=== PATIENT | female | born 1935 | race Caucasian/White ===

== ENCOUNTER 2016-04-07 16:07 | Inpatient (IN) | payer MEDICARE ==
[~2016-04-07] VITALS: Ht 157.5 cm; Wt 60.9 kg
[2016-04-07 16:09] VITALS: BP 194/86; PULSE 78; RESP 14; TEMP 98; O2SAT 97
--- NOTE | 2016-04-07 18:41 | PD ---
HPI Chief Complaint: Laceration/Skin Injury Time Seen by Provider: 18:38 Travel History International Travel<30 days: No Contact w/Intl Traveler<30days: No Traveled to known affect area: No History of Present Illness HPI 81-year-old female presents to the emergency department for evaluation after a trip and fall that occurred perspired to arrival. Patient states she tripped and fell hitting her head against the concrete. Patient reports laceration to the right forehead with localized tenderness. Patient also reports pain to her left hand and right forearm. She reports chronic hip pain, but states she does have hip pain today. Patient denies taking any anticoagulants other than a baby aspirin daily. She states she was on Coumadin previously for stroke, but is no longer taking it. Patient denies any neck pain or back pain. No chest pain or abdominal pain. No vomiting. She states she was not ambulatory after the fall. Patient states her tetanus immunization is up-to-date. PFSH Past Medical History Cerebrovascular Accident: Yes Social History Alcohol Use: No Tobacco Use: No Substance Use: No Allergies-Medications (Allergen,Severity, Reaction): Coded Allergies: No Known Allergies (Unverified , 04/07/16) Reported Meds & Prescriptions Reported Meds & Active Scripts Active Reported Aspirin 81 (Aspirin) 81 Mg Tabdr 81 Mg PO DAILY Hydrochlorothiazide 25 Mg Tab 25 Mg PO DAILY Lisinopril 10 Mg Tab 10 Mg PO DAILY Review of Systems Except as stated in HPI: all other systems reviewed are Neg Physical Exam Narrative GENERAL: Well-developed well-nourished elderly female patient, afebrile. SKIN: Warm and dry. Patient has an approximately 4 cm laceration to the right forehead. HEAD: Normocephalic. EYES: No scleral icterus. No injection or drainage. NECK: Supple, trachea midline. No JVD or lymphadenopathy. CARDIOVASCULAR: Regular rate and rhythm without murmurs, gallops, or rubs. RESPIRATORY: Breath sounds equal bilaterally. No accessory muscle use. Lungs sounds are clear to auscultation. GASTROINTESTINAL: Abdomen soft, non-tender, nondistended. MUSCULOSKELETAL: No cyanosis, or edema. Patient has tenderness over right elbow and right wrist. She also has ecchymosis to the left hand with small abrasion. Patient has bilateral hip pain to palpation. BACK: Nontender without obvious deformity. No CVA tenderness. Data Data Last Documented VS Vital Signs Date Time Temp Pulse Resp B/P Pulse Ox O2 Delivery O2 Flow Rate FiO2 04/07/16 16:09 98.0 78 14 194/[address] Brain W/O Iv Contrast(Rout) (04/07/16 ) Ct Cerv Spine W/O Contrast (04/07/16 ) Ct Facial Bones W/O Iv Cont (04/07/16 ) Pelvis, Ap Only (Routine) (04/07/16 ) Forearm (2vws) (04/07/16 ) Hand, Complete ([id number]) (04/07/16 ) I-Stat Profile (04/07/16 19:52) I-Stat Creatinine (04/07/16 19:52) Complete Blood Count With Diff (04/07/16 19:52) Prothrombin Time / Inr (Pt) (04/07/16 19:52) Act Partial Throm Time (Ptt) (04/07/16 19:52) Type And Screen (04/07/16 19:52) Fibrinogen (04/07/16 19:52) Urinalysis - C+S If Indicated (04/07/16 19:52) Iv Access Insert/Monitor (04/07/16 19:52) Ecg Monitoring (04/07/16 19:52) Oximetry (04/07/16 19:52) Oxygen Administration (04/07/16 19:52) Wound Care (04/07/16 19:52) Cefazolin 2 Gm Premix (Ancef 2 Gm Premix (04/07/16 20:00) Etts-Vlo-Rjvmyp (Booster) Inj (Boostrix (04/07/16 20:00) Sodium Chloride 0.9% Flush (Ns Flush) (04/07/16 20:00) Sodium Chlor 0.9% 1000 Ml Inj (Ns 1000 M (04/07/16 20:00) Elbow, Complete (4 Vws) (04/07/16 19:54) Ice/Cold Pack (04/07/16 19:54) Splint Or Brace Apply/Monitor (04/07/16 19:54) Labs Laboratory Tests Test 04/07/16 19:55 White Blood Count 7.3 TH/MM3 Red Blood Count 4.58 MIL/MM3 Hemoglobin 14.0 GM/DL Bedside Hemoglobin 13.9 G/DL Hematocrit 41.1 % Bedside Hematocrit 41.0 % Mean Corpuscular Volume 89.8 FL Mean Corpuscular Hemoglobin 30.7 PG Mean Corpuscular Hemoglobin 34.2 % Concent Red Cell Distribution Width 13.6 % Platelet Count 202 TH/MM3 Mean Platelet Volume 7.6 FL Neutrophils (%) (Auto) 71.5 % Lymphocytes (%) (Auto) 19.2 % Monocytes (%) (Auto) 8.0 % Eosinophils (%) (Auto) 1.0 % Basophils (%) (Auto) 0.3 % Neutrophils # (Auto) 5.2 TH/MM3 Lymphocytes # (Auto) 1.4 TH/MM3 Monocytes # (Auto) 0.6 TH/MM3 Eosinophils # (Auto) 0.1 TH/MM3 Basophils # (Auto) 0.0 TH/MM3 CBC Comment DIFF FINAL Differential Comment Prothrombin Time 10.9 SEC Prothromb Time International 1.0 RATIO Ratio Activated Partial 26.9 SEC Thromboplast Time Fibrinogen 314 mg/dL Bedside Sodium 141 MMOL/L Bedside Potassium 3.6 MMOL/L Bedside Chloride 100 MMOL/L Bedside Blood Urea Nitrogen 21 MG/DL Bedside Creatinine 0.6 MG/DL Bedside Glucose 89 MG/DL [facility] Medical Decision Making Medical Screen Exam Complete: Yes Emergency Medical Condition: Yes Medical Record Reviewed: Yes Differential Diagnosis Laceration versus intracranial abnormality versus fracture versus contusion Narrative Course 81-year-old elderly female presents to the emergency department for evaluation after a trip and fall. CT of the brain, cervical spine, facial bones are ordered and pending. X-ray of the right forearm, left hand, pelvis are ordered and pending. Workup is initiated in triage. Once a medical bed becomes available, patient will be transferred and care assumed by that provider. Samantha Angel Apr 07, 2016 18:41
--- NOTE | 2016-04-07 19:26 | RADRPT ---
EXAM DATE/TIME: 04/07/2016 18:51 [facility] COMPARISON: No previous studies available for comparison. INDICATIONS : Bilateral hip pain after fall today. MEDICAL HISTORY : None. SURGICAL HISTORY : None. ENCOUNTER: Initial ACUITY: 1 day PAIN SCORE: 5/10 LOCATION: Bilateral hips. FINDINGS: A single frontal view of the pelvis demonstrates no evidence of fracture. The bony pelvic ring is in tact. Bony mineralization is normal. The soft tissues are intact. There is degenerative change in t he lower lumbar spine. CONCLUSION: No acute disease. Jovon Hernandez MD on April 07, 2016 at 19:24 Board Certified Radiologist. This report was verified electronically.
--- NOTE | 2016-04-07 19:29 | RADRPT ---
EXAM DATE/TIME: 04/07/2016 18:57 [facility] COMPARISON: No previous studies available for comparison. INDICATIONS : Trip and fall today; laceration to forehead. RADIATION DOSE: 62.44 CTDIvol (mGy) MEDICAL HISTORY : Cerebrovascular disease. SURGICAL HISTORY : None. ENCOUNTER: Initial ACUITY: 1 day PAIN SCORE: 5/10 LOCATION: facial TECHNIQUE: Volumetric scanning of the facial bones was performed. Using automated exposure control and adjustme nt of the mA and/or kV according to patient size, radiation dose was kept as low as reasonably achiev able to obtain optimal diagnostic quality images. FINDINGS: ORBITS: The orbital and infraorbital osseous structures are intact. The retroconal structures have a normal configuration. No radiopaque foreign bodies are seen. NASAL BONE: The nasal bone and maxillary spine are intact ZYGOMATIC ARCHES: Symmetric without evidence of fracture. SINUSES: The maxillary, ethmoid and frontal sinuses are intact. No air-fluid levels seen. NASAL CAVITY: The nasal septum is intact and midline. The lacrimal ducts are intact. SOFT TISSUES: There is soft tissue swelling at the right frontal scalp region. There is right periorbital soft tiss ue swelling. No radiopaque foreign bodies seen. INTRACRANIAL: No intracranial air seen. CRIBIFORM PLATE: Grossly intact. CONCLUSION: 1. The bones are intact. 2. Right frontal scalp and periorbital soft tissue swelling. Jovon Hernandez MD on April 07, 2016 at 19:25 Board Certified Radiologist. This report was verified electronically.
--- NOTE | 2016-04-07 19:31 | RADRPT ---
EXAM DATE/TIME: 04/07/2016 18:41 [facility] COMPARISON: No previous studies available for comparison. INDICATIONS : Left hand pain and swelling after fall today. MEDICAL HISTORY : None. SURGICAL HISTORY : None. ENCOUNTER: Initial ACUITY: 1 day PAIN SCORE: 5/10 LOCATION: Left hand. FINDINGS: No fracture is seen. The bones and joints are aligned. There is chronic degenerative ch skyler at the first carpometacarpal joint. The bones appear osteopenic. There does appear to be some s oft-tissue swelling at the medial aspect of the hand. CONCLUSION: 1. Medial soft-tissue swelling. 2. Chronic degenerative change at the first carpometacarpal joint. Jovon Hernandez MD on April 07, 2016 at 19:21 Board Certified Radiologist. This report was verified electronically.
--- NOTE | 2016-04-07 19:33 | RADRPT ---
EXAM DATE/TIME: 04/07/2016 18:44 [facility] COMPARISON: No previous studies available for comparison. INDICATIONS : Right arm pain after fall. Pain near elbow. MEDICAL HISTORY : None. SURGICAL HISTORY : None. ENCOUNTER: Initial ACUITY: 1 day PAIN SCORE: 8/10 LOCATION: Right forearm. FINDINGS: There is a lucency seen at the radial head concerning for a possible fracture. The patient does appe ar to have an elbow effusion. The elbow is normally aligned. There is a spur at the anterior proxim al ulna at the coronoid process. The remaining aspects of the ulna and radius appear intact. The wris t is normally aligned. There is chronic degenerative change at the first carpometacarpal joint. CONCLUSION: Possible nondisplaced fracture at the radial head with a suspected elbow joint effusi on. Jovon Hernandez MD on April 07, 2016 at 19:22 Board Certified Radiologist. This report was verified electronically.
--- NOTE | 2016-04-07 19:41 | RADRPT ---
EXAM DATE/TIME: 04/07/2016 18:57 [facility] COMPARISON: No previous studies available for comparison. INDICATIONS : Trip and fall today; laceration to forehead. RADIATION DOSE: 34.16 CTDIvol (mGy) MEDICAL HISTORY : Cerebrovascular disease. SURGICAL HISTORY : None. ENCOUNTER: Initial ACUITY: 1 day PAIN SCALE: 5/10 LOCATION: Cranial TECHNIQUE: Multiple contiguous axial images were obtained of the head. Using automated exposure control and adjustment of the mA and/or kV according to patient size, radiation dose was kept as low as reasonably achievable to obtain optimal diagnostic quality images. FINDINGS: The ventricles and cortical sulci are widened. There is a focal area of increas ed density seen in the right sylvian fissure region seen in the right lateral extraaxial space. This could be a small 0.8 cm area of focal hemorrhage or calcification. It more closely resembles hemorr sg based on its density. Significant mass effect is not seen. No other potential areas of hemorrha ge are seen. The patient does have an area of low density seen at the inferior right cerebellar louis sphere likely from prior infarction. CONCLUSION: 1. Small 0.8 cm area of increased density at the right lateral frontal extraaxial space adjacent to t he sylvian fissure which could represent a small focal extraaxial hemorrhage without mass effect. 2. Low density seen in the right cerebellar hemisphere which may be from prior infarct. Jovon Hernandez MD on April 07, 2016 at 19:28 Board Certified Radiologist. This report was verified electronically.
--- NOTE | 2016-04-07 19:48 | RADRPT ---
EXAM DATE/TIME: 04/07/2016 18:57 [facility] COMPARISON: No previous studies available for comparison. INDICATIONS : Trip and fall today; laceration to forehead. RADIATION DOSE: 15.69 CTDIvol (mGy) MEDICAL HISTORY : Cerebrovascular disease. SURGICAL HISTORY : None. ENCOUNTER: Initial ACUITY: 1 day PAIN SCALE: 7/10 LOCATION: Neck TECHNIQUE: Volumetric scanning of the cervical spine was performed. Multiplanar reconstructions i n the sagittal, coronal and oblique axial planes were performed. Using automated exposure control a nd adjustment of the mA and/or kV according to patient size, radiation dose was kept as low as reason ably achievable to obtain optimal diagnostic quality images. FINDINGS: The craniovertebral junction is intact. The C1 ring is intact. The C1-C2 articulation is intact. The dens is intact. The cervical vertebral bodies are normal in height. There is mild reversal of the normal C-spine lordosis. There is disc space narrowing at the C3-C4 through C6-C7 lev els. Prevertebral soft tissue swelling is not seen. C2-C3: The disc space is intact. There is no spinal stenosis and the neural foramina are normal. The re is facet hypertrophy being worse on the right. C3-C4: Disc space is narrowed. Significant impression on the thecal sac is not seen. The neural for geoffrey are grossly normal. There is bilateral facet hypertrophy. C4-C5: Disc space is narrowed. There is mild impression on the anterior aspect of the thecal sac fr om mild diffuse disc bulge or focal central disc protrusion. There is posterior osteophytic ridging. There is uncovertebral hypertrophy and bilateral facet hypertrophy. The neural foramina are grossly intact. C5-C6: There is mild diffuse disc bulge. There is moderate osteophytic ridging causing at least a m oderate impression on the anterior aspect of the thecal sac. There is uncovertebral hypertrophy caus ing neural foraminal narrowing bilaterally being worse on the right. C6-C7: Disc space is narrowed. There is mild disc bulge and osteophytic ridging. There is uncovert ebral hypertrophy. There is minimal narrowing of the left neural foramina. The right neural foramin a appears intact. C7-T1: The bony spinal canal is normal in size. No evidence of disc bulge or herniation. The neura l foramina are bilaterally patent. CONCLUSION: Degenerative changes throughout the cervical spine as described above. An acute bony abnormality is not seen. Jovon Hernandez MD on April 07, 2016 at 19:32 Board Certified Radiologist. This report was verified electronically.
[2016-04-07 20:00] VITALS: BP 188/85; PULSE 83; RESP 17; O2SAT 97
[2016-04-07] MEDS ORDERED: SODIUM CHLORIDE 0.9% FLUSH 5 ML FLUSH IVF PRN (20:00)
[2016-04-07] MEDS ORDERED: ceFAZolin 2 GM PREMIX 50 ML IV ONE (20:00)
[2016-04-07] MEDS ORDERED: DIPHTH/TETANUS/ACEL PERTUSSIS (BOOSTER) 0.5 ML VIAL/PFS IM ONE (20:00)
[2016-04-07] MEDS ORDERED: HYDR25TA5 PO (20:07)
[2016-04-07] MEDS ORDERED: LISI10TA3 PO (20:07)
[2016-04-07] MEDS ORDERED: ASPI-110 PO (20:07)
[2016-04-07 20:08] LABS: AUTOMATED NEUTROPHIL # 5.2 TH/MM3 (1.8-7.7); BASOPHIL % 0.3 % (0.0-2.0); EOSINOPHIL # 0.1 TH/MM3 (0-0.4); HEMATOCRIT 41.1 % (35.0-46.0); HEMO FLAGS DIFF FINAL; LYMPH % 19.2 % (9.0-44.0); LYMPHOCYTE # 1.4 TH/MM3 (1.0-4.8); MEAN CELL VOLUME 89.8 FL (80.0-100.0); MEAN CORPUSCULAR HEMOGLOBIN 30.7 PG (27.0-34.0); MEAN CORPUSCULAR HGB CONC 34.2 % (32.0-36.0); NEUT % 71.5 % (16.0-70.0); PLATELET COUNT 202 TH/MM3 (150-450); RED BLOOD COUNT 4.58 MIL/MM3 (4.00-5.30); RED CELL DISTRIBUTION WIDTH 13.6 % (11.6-17.2); WHITE BLOOD COUNT 7.3 TH/MM3 (4.0-11.0)
--- NOTE | 2016-04-07 20:11 | PD ---
Physical Exam Narrative General: The patient is a well-developed well-nourished female in no acute distress, with a pressure bandage in place over the forehead. Head and Neck exam: Head is normocephalic, evidence of trauma with a large stellate laceration approximating 7 cm of laceration over the right side of the forehead with a small amount of oozing noted with pressure bandage removal. The patient is noted to have an area of ecchymosis developing along the lateral aspect of the right eye. The patient has tenderness on palpation over the forehead. The patient has no other facial tenderness on palpation. No step-off or crepitus. No increased facial bone mobility on palpation. Eyes: EOMI, pupils are equal round and reactive to light. Nose: Midline septum with pink mucous membranes Mouth: Dentition unremarkable. Moist mucus membranes. Posterior oropharynx is not erythematous. No tonsillar hypertrophy. Uvula midline. Airway patent. Neck: No palpable lymphadenopathy. No nuchal rigidity. No thyromegaly. No spinous process tenderness to palpation, no step-off or crepitus, no erythema or ecchymosis. Cardiovascular: Regular rate and rhythm without murmurs, gallops, or rubs. Lungs: Clear to auscultation bilaterally. No wheezes, rhonchi, or rales. Abdomen: Soft, without tenderness to palpation in all 4 quadrants of the abdomen. No guarding, rebound, or rigidity. Normal bowel sounds are audible. Extremities: No clubbing, cyanosis, or edema. 2+ pulses in all 4 extremities. The patient on examination of the patient's left hand is noted to have an area of ecchymosis developing along the dorsum of the hand, overlying the third fourth and fifth metacarpal. There is tenderness on palpation at this site, however no step-off or crepitus. She has full range of motion of her hand. On examination of the right hand the patient has an abrasion along the volar surface, base of the hand. There is tenderness at this site, however no crepitus or step-off. The patient additionally has tenderness on palpation along the elbow. There is no crepitus or step-off. The patient has pain with supination and pronation. Back: No spinous process tenderness to palpation. No costovertebral angle tenderness to palpation. Neurologic Exam: Cranial nerves 2-12 were intact on exam. Strength is 5/5 in all 4 extremities. No sensory deficits noted. No dysdiadochokinesis. Good finger to nose and Heel to araujo bilaterally. Skin Exam: No rash noted. Intact skin that is warm and dry. Data Data Last Documented VS Vital Signs Date Time Temp Pulse Resp B/P Pulse Ox O2 Delivery O2 Flow Rate FiO2 04/07/16 20:00 83 17 188/85 97 Room Air 04/07/16 16:[address] Brain W/O Iv Contrast(Rout) (04/07/16 ) Ct Cerv Spine W/O Contrast (04/07/16 ) Ct Facial Bones W/O Iv Cont (04/07/16 ) Pelvis, Ap Only (Routine) (04/07/16 ) Forearm (2vws) (04/07/16 ) Hand, Complete ([id number]) (04/07/16 ) I-Stat Profile (04/07/16 19:52) I-Stat Creatinine (04/07/16 19:52) Complete Blood Count With Diff (04/07/16 19:52) Prothrombin Time / Inr (Pt) (04/07/16 19:52) Act Partial Throm Time (Ptt) (04/07/16 19:52) Type And Screen (04/07/16 19:52) Fibrinogen (04/07/16 19:52) Urinalysis - C+S If Indicated (04/07/16 19:52) Iv Access Insert/Monitor (04/07/16 19:52) Ecg Monitoring (04/07/16 19:52) Oximetry (04/07/16 19:52) Oxygen Administration (04/07/16 19:52) Wound Care (04/07/16 19:52) Cefazolin 2 Gm Premix (Ancef 2 Gm Premix (04/07/16 20:00) Tpbh-Zvf-Pyywen (Booster) Inj (Boostrix (04/07/16 20:00) Sodium Chloride 0.9% Flush (Ns Flush) (04/07/16 20:00) Sodium Chlor 0.9% 1000 Ml Inj (Ns 1000 M (04/07/16 20:00) Elbow, Complete (4 Vws) (04/07/16 19:54) Ice/Cold Pack (04/07/16 19:54) Splint Or Brace Apply/Monitor (04/07/16 19:54) Admit Order (Ed Use Only) (04/07/16 20:44) Labs Laboratory Tests Test 04/07/16 19:55 White Blood Count 7.3 TH/MM3 Red Blood Count 4.58 MIL/MM3 Hemoglobin 14.0 GM/DL Bedside Hemoglobin 13.9 G/DL Hematocrit 41.1 % Bedside Hematocrit 41.0 % Mean Corpuscular Volume 89.8 FL Mean Corpuscular Hemoglobin 30.7 PG Mean Corpuscular Hemoglobin 34.2 % Concent Red Cell Distribution Width 13.6 % Platelet Count 202 TH/MM3 Mean Platelet Volume 7.6 FL Neutrophils (%) (Auto) 71.5 % Lymphocytes (%) (Auto) 19.2 % Monocytes (%) (Auto) 8.0 % Eosinophils (%) (Auto) 1.0 % Basophils (%) (Auto) 0.3 % Neutrophils # (Auto) 5.2 TH/MM3 Lymphocytes # (Auto) 1.4 TH/MM3 Monocytes # (Auto) 0.6 TH/MM3 Eosinophils # (Auto) 0.1 TH/MM3 Basophils # (Auto) 0.0 TH/MM3 CBC Comment DIFF FINAL Differential Comment Prothrombin Time 10.9 SEC Prothromb Time International 1.0 RATIO Ratio Activated Partial 26.9 SEC Thromboplast Time Fibrinogen 314 mg/dL Bedside Sodium 141 MMOL/L Bedside Potassium 3.6 MMOL/L Bedside Chloride 100 MMOL/L Bedside Blood Urea Nitrogen 21 MG/DL Bedside Creatinine 0.6 MG/DL Bedside Glucose 89 MG/DL Blood Type A POSITIVE Antibody Screen NEGATIVE Blood Bank Comment [facility] Medical Record Reviewed: Yes Supervised Visit with MARTIN: No Interpretation(s) Last Impressions Elbow X-Ray 04/07/161953 Signed Impressions: Service Date/Time: Thursday, April 07, 2016 20:02 - CONCLUSION: Nondisplaced radial head fracture. Jovon Hernandez MD Radius/Ulna X-Ray 04/07/16 0000 Signed Impressions: Service Date/Time: Thursday, April 07, 2016 18:44 - CONCLUSION: Possible nondisplaced fracture at the radial head with a suspected elbow joint effusion. Jovon Hernandez MD Pelvis X-Ray 04/07/16 0000 Signed Impressions: Service Date/Time: Thursday, April 07, 2016 18:51 - CONCLUSION: No acute disease. Jovon Hernandez MD Maxillofacial CT 04/07/16 Signed Impressions: Service Date/Time: Thursday, April 07, 2016 18:57 - CONCLUSION: 1. The bones are intact. 2. Right frontal scalp and periorbital soft tissue swelling. Jovon Hernandez MD Head CT 04/07/16 Signed Impressions: Service Date/Time: Thursday, April 07, 2016 18:57 - CONCLUSION: 1. Small 0.8 cm area of increased density at the right lateral frontal extraaxial space adjacent to the sylvian fissure which could represent a small focal extraaxial hemorrhage without mass effect. 2. Low density seen in the right cerebellar hemisphere which may be from prior infarct. Jovon Hernandez MD Hand X-Ray 04/07/16 Signed Impressions: Service Date/Time: Thursday, April 07, 2016 18:41 - CONCLUSION: 1. Medial soft-tissue swelling. 2. Chronic degenerative change at the first carpometacarpal joint. Jovon Hernandez MD Cervical Spine CT 04/07/16 Signed Impressions: Service Date/Time: Thursday, April 07, 2016 18:57 - CONCLUSION: Degenerative changes throughout the cervical spine as described above. An acute bony abnormality is not seen. Jovon Hernandez MD Narrative Course During the course of the patients emergency department visit, the patients history, examination, and differential diagnosis were reviewed with the patient. The patient had IV access obtained and blood work sent for analysis. An i-STAT with creatinine was ordered as the patient was initially evaluated out in triage with imaging that revealed an intracranial hemorrhage, therefore to facilitate her admission the i-STAT was ordered. The patient was provided an update of her tetanus, Ancef 2 g IV, The patients laboratory studies were reviewed and remarkable for white count of 7.3, hemoglobin 14, platelets 202 with neutrophil of 71.5, i-STAT with creatinine shows a sodium of 141, potassium 3.6, chloride 100, BUN 21, creatinine 0.6 PT PTT unremarkable, fibrinogen 314, urinalysis shows trace leukocyte esterase otherwise unremarkable. Radiology studies were reviewed and remarkable for a hand x-ray that showed soft tissue swelling, chest x-ray showed no acute abnormality, pelvic x-ray showed no acute abnormality. Right forearm x-ray was suspicious for a possible nondisplaced fracture of the radial head with suspected elbow joint effusion. A right elbow x-ray has been ordered. A sugar tong splint will be applied. The patient will be given an ice pack for discomfort. CT scan of the C-spine showed no acute abnormality. CT scan of the brain shows a small 0.8 cm area of increased density at the right lateral frontal extra-axial space adjacent to the sylvian fissure which could represent a small focal extra-axial hemorrhage without mass effect. Low density seen in the right cerebellar hemisphere which may be from prior infarct. X-ray of the right elbow confirm a nondisplaced radial head fracture. Regarding the patient's laceration, the physician ortho assistant, Nevin was consulted for wound cleansing and repair. The patients results were discussed with the patient, including the plan of care. I explained that further testing and/ or monitoring is indicated based on the patients history, examination, and/ or laboratory findings. Therefore, I recommended admission for additional evaluation. The patient expressed understanding and was agreeable with this plan. The patient was admitted to the hospital in guarded condition and sent to a bed under the care of the trauma service. Physician Communication Physician Communication Dr. Bello spoke to him at 8:39 PM regarding this patient's case. Given the patient's complex facial laceration, right radial head fracture and intracranial hemorrhage, he requested that the patient be admitted to the trauma service with a consultation to him. He requested that the patient be admitted to the [facility]. I spoke to Dr. Matta regarding this patient's case. He did agree to admit the patient for further evaluation and treatment at this time. Diagnosis Primary Impression: Fall Qualified Code: W19.XXXA - Fall, initial encounter Additional Impressions: Intracranial hemorrhage Nondisplaced fracture of head of right radius Qualified Code: S52.124A - Closed nondisplaced fracture of head of right radius, initial encounter Complex laceration of face Qualified Code: S01.91XA - Complex laceration of face, initial encounter Admitting Information Admitting Physician Requests: Admit Abby Evans MD Apr 07, 2016 20:11
[2016-04-07 20:13] LABS: I-STAT POTASSIUM 3.6 MMOL/L (3.5-4.9)
[2016-04-07 20:16] LABS: APTT (PATIENT) 26.9 SEC (24.3-30.1); PROTHROMBIN TIME - PATIENT 10.9 SEC (9.8-11.6)
--- NOTE | 2016-04-07 20:36 | RADRPT ---
EXAM DATE/TIME: 04/07/2016 20:02 [facility] COMPARISON: No previous studies available for comparison. INDICATIONS : Right elbow pain post fall. MEDICAL HISTORY : None. SURGICAL HISTORY : None. ENCOUNTER: Initial ACUITY: 1 day PAIN SCORE: 8/10 LOCATION: Right upper extremity FINDINGS: On a single image, there does appear to be a fracture at the radial head. The elbow appears normally aligned. There is a spur at the anterior proximal aspect of the ulna at the coronoid process. Ther e does appear to be an elbow effusion. CONCLUSION: Nondisplaced radial head fracture. Jovon Hernandez MD on April 07, 2016 at 20:27 Board Certified Radiologist. This report was verified electronically.
[2016-04-07 21:00] VITALS: BP 178/82; PULSE 76; RESP 20; O2SAT 97
[2016-04-07] MEDS ORDERED: LIDOCAINE 1%/EPINEPHrine 1:100,000 SOLN 20 ML VIAL INFIL ONE (21:00)
--- NOTE | 2016-04-07 21:03 | PD ---
Physical Exam Date Seen by Provider: Apr 07, 2016 Time Seen by Provider: 21:02 Data Data Last Documented VS Vital Signs Date Time Temp Pulse Resp B/P Pulse Ox O2 Delivery O2 Flow Rate FiO2 04/07/16 16:09 98.0 78 14 194/[address] Brain W/O Iv Contrast(Rout) (04/07/16 ) Ct Cerv Spine W/O Contrast (04/07/16 ) Ct Facial Bones W/O Iv Cont (04/07/16 ) Pelvis, Ap Only (Routine) (04/07/16 ) Forearm (2vws) (04/07/16 ) Hand, Complete ([id number]) (04/07/16 ) I-Stat Profile (04/07/16 19:52) I-Stat Creatinine (04/07/16 19:52) Complete Blood Count With Diff (04/07/16 19:52) Prothrombin Time / Inr (Pt) (04/07/16 19:52) Act Partial Throm Time (Ptt) (04/07/16 19:52) Type And Screen (04/07/16 19:52) Fibrinogen (04/07/16 19:52) Urinalysis - C+S If Indicated (04/07/16 19:52) Iv Access Insert/Monitor (04/07/16 19:52) Ecg Monitoring (04/07/16 19:52) Oximetry (04/07/16 19:52) Oxygen Administration (04/07/16 19:52) Wound Care (04/07/16 19:52) Cefazolin 2 Gm Premix (Ancef 2 Gm Premix (04/07/16 20:00) Gctl-Tqu-Xhloit (Booster) Inj (Boostrix (04/07/16 20:00) Sodium Chloride 0.9% Flush (Ns Flush) (04/07/16 20:00) Sodium Chlor 0.9% 1000 Ml Inj (Ns 1000 M (04/07/16 20:00) Elbow, Complete (4 Vws) (04/07/16 19:54) Ice/Cold Pack (04/07/16 19:54) Splint Or Brace Apply/Monitor (04/07/16 19:54) Admit Order (Ed Use Only) (04/07/16 20:44) Labs Laboratory Tests Test 04/07/16 19:55 White Blood Count 7.3 TH/MM3 Red Blood Count 4.58 MIL/MM3 Hemoglobin 14.0 GM/DL Bedside Hemoglobin 13.9 G/DL Hematocrit 41.1 % Bedside Hematocrit 41.0 % Mean Corpuscular Volume 89.8 FL Mean Corpuscular Hemoglobin 30.7 PG Mean Corpuscular Hemoglobin 34.2 % Concent Red Cell Distribution Width 13.6 % Platelet Count 202 TH/MM3 Mean Platelet Volume 7.6 FL Neutrophils (%) (Auto) 71.5 % Lymphocytes (%) (Auto) 19.2 % Monocytes (%) (Auto) 8.0 % Eosinophils (%) (Auto) 1.0 % Basophils (%) (Auto) 0.3 % Neutrophils # (Auto) 5.2 TH/MM3 Lymphocytes # (Auto) 1.4 TH/MM3 Monocytes # (Auto) 0.6 TH/MM3 Eosinophils # (Auto) 0.1 TH/MM3 Basophils # (Auto) 0.0 TH/MM3 CBC Comment DIFF FINAL Differential Comment Prothrombin Time 10.9 SEC Prothromb Time International 1.0 RATIO Ratio Activated Partial 26.9 SEC Thromboplast Time Fibrinogen 314 mg/dL Bedside Sodium 141 MMOL/L Bedside Potassium 3.6 MMOL/L Bedside Chloride 100 MMOL/L Bedside Blood Urea Nitrogen 21 MG/DL Bedside Creatinine 0.6 MG/DL Bedside Glucose 89 MG/DL Blood Type A POSITIVE Antibody Screen NEGATIVE Blood Bank Comment [facility] Supervised Visit with MARTIN: No Narrative Course I was asked to evaluate this patient's laceration. She was seen by Dr. Evans who retains primary care. Please see her note for details Briefly, this is a 81-year-old female who suffered a mechanical fall today. On my exam the patient is alert and oriented. There is a stellate laceration just superior to the right eyebrow. This laceration totals approximately 7 cm in length. Laceration repair was performed. Please see my procedure note for details. Dr. Evans retains care of this patient. Please see her note for disposition. Procedures Procedure Narrative LACERATION LOCATION: Superior to the right eyebrow LENGTH: Stellate laceration totaling approximately 7 cm NUMBER OF STITCHES/ROC: 21 REPAIR: The area of the laceration was prepped with Betadine and sterilely draped. The laceration was infiltrated with 1% lidocaine with epinephrine. The wound was copiously irrigated and explored without evidence of foreign body, tendon injury or neurovascular injury. The wound was closed using 5-0 Prolene. This was a single layer repair. A sterile dressing was applied. The patient was advised to keep the dressing clean and dry. Patient tolerated the procedure well. Diagnosis Primary Impression: Fall Qualified Code: W19.XXXA - Fall, initial encounter Additional Impressions: Nondisplaced fracture of head of right radius Qualified Code: S52.124A - Closed nondisplaced fracture of head of right radius, initial encounter Intracranial hemorrhage Complex laceration of face Nevin Brennan Apr 07, 2016 21:03
[2016-04-07] MEDS: SODIUM CHLOR 0.9% 1000 ML INJ 1,000 ML IV SCH (22:13)
--- NOTE | 2016-04-07 22:43 | PD.PN.STU ---
Subjective Remarks History and Physical CC: "Was out walking and fell on pavement." HPI: NS is an 81 yo WF presents to the ER (with ) with a complex stellate laceration with contusion on her R temporal/forehead region, a fractured head of the R radius, contusion on the dorsal aspect of her L hand, and abrasions on her knees bilaterally. She reports that she was walking with her when her shoe lost traction and she fell face first towards the cement with arms outstretched. She states that the cut above her R eye was made by her glasses breaking in the process of the fall. She reports dull but constant pain (5/10 intensity) at the aforementioned sites of injury with no radiation, the worst pain coming from her head injury. She reports no LOC, headaches, n/v/d. At the time of interview, she reports not having any alleviating or aggravating factors due to the emergency of arriving to the ER so quickly. She has not been administered any pain medication at the time of interview. FamHx: Father at age 61 from severe cardiac issues ([place]). Mother of [place] at age 84. Reported her brother last year of COPD secondary to years of tobacco use. 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 Denies smoking/ tobacco use, EtOH, or drug use. PMHx: stroke in 2010, HTN PSx: Tonsillectomy, Hysterectomy Current Medications: low dose ASA, HCTZ, Lisinopril, and multivitamins Allergies: NKDA however, sensitivity to statins (cause leg pains) and Warfarin ( causes nausea and sickness) ROS: 12 point review of systems negative except for pain in areas mentioned above (forehead, R elbow, L wrist). Objective Vitals Vital Signs Date Time Temp Pulse Resp B/P Pulse Ox O2 Delivery O2 Flow Rate FiO2 04/07/16 16:09 98.0 78 14 194/86 97 Room Air Result Diagram: 04/07/161954 Imaging Radiology studies were reviewed and remarkable for a hand x-ray that showed soft tissue swelling, chest x-ray showed no acute abnormality, pelvic x-ray showed no acute abnormality. Right forearm x-ray was suspicious for a possible nondisplaced fracture of the radial head with suspected elbow joint effusion. CT scan of the C-spine showed no acute abnormality. CT scan of the brain shows a small 0.8 cm area of increased density at the right lateral frontal extra- axial space adjacent to the sylvian fissure which could represent a small focal extra-axial hemorrhage without mass effect. Low density seen in the right cerebellar hemisphere which may be from prior infarct. Objective Remarks PE: General: WNWD A&Ox4 pleasant and cooperative 81yo WF who appears her stated age. HEENT: large stellate laceration noted on R forehead with surrounding periorbital bruising and minimal wound discharge at the time of exam. Noted tenderness to palpation of forehead. Heart: RRR no rubs gallops or murmurs appreciated. no JVD or bruits. Lungs: CTA BL no rales, rhonchi, wheezes, or crackles. Abdomen: soft, nontender with BS present in all 4 quadrants. no guarding or rebound. Extremities: no signs of edema, or cyanosis. pedal pulses equal and 2+. Radial pulses 2+ and equal. Patient has bruising and ecchymosis on the dorsal aspect of her L hand. Patient has full range of motion but reports pain with clenching her fist and tenderness to palpation. Patient also has tenderness to palpation of R elbow and ROM was limited due to being in a sling. Neuro: CN II-XII intact, negative mini mental state exam, good finger to nose movement and repetitive movement. No FND noted. Procedures At the time of interview, the ER PASj, used 5-0 Prolene suture to close up the laceration on the forehead using simple interrupted suture pattern. A/P Assessment and Plan Based on the presentation of the patient these diagnostic considerations must be addressed: 1. Fall - given previous h/o falls, must r/o syncope or neurovascular reasons for falls. Also assess any gait difficulties (consult PT?) 2. Intracranial Hemorrhage - given previous hx of stroke in 2010, considerations for routine carotid U/S could be used to r/o cardiogenic emboli. 3. Nondisplaced fracture of head of right radius - currently in sugar tong splint 4. Complex laceration of face - sutured via 5-0 prolene in simple interrupted pattern Ferny Balderas M3 Apr 07, 2016 22:43
[2016-04-07 23:00] VITALS: BP 162/78; PULSE 82; RESP 16; O2SAT 97
[2016-04-07] MEDS ORDERED: oxyCODONE/ACETAMINOPHEN 5 MG/325 MG TAB PO PRN (23:30)
[2016-04-07] MEDS ORDERED: MORPHINE SULFATE 4 MG/ML INJ IV PRN (23:30)
[2016-04-08] VITALS (11 sets, daily range): BP systolic 142–170; BP diastolic 67–94; PULSE 71–82; RESP 14–17; TEMP 98.4; O2SAT 93–96
[2016-04-08] MEDS: SODIUM CHLOR 0.9% 1000 ML INJ 1,000 ML IV SCH ×3 (00:02→08:55)
[2016-04-08 00:23] LABS: BLOOD, URINE NEG (NEG); GLUCOSE,URINE NEG (NEG); KETONE, URINE NEG (NEG); NITRITE,URINE NEG (NEG); SQUAMOUS EPITHELIAL CELL URINE <1 /hpf (0-5); URINE COLOR LIGHT-YELLOW (YELLW/STRAW)
[2016-04-08 00:28] LABS: COMMENT (UR) CULT NOT INDICATED; CULTURE IF INDICATED CULT NOT INDICATED
[2016-04-08] MEDS ORDERED: MISCELLANEOUS NURSING INFORMATION XX SCH (08:00)
[2016-04-08] MEDS ORDERED: CHLORHEXIDINE GLUCONATE 2 % 1 PACK (2 CLOTHS) TOP PRN (08:00)
[2016-04-08] MEDS ORDERED: MAGNESIUM HYDROXIDE SUSP 30 ML CUP PO PRN (08:00)
[2016-04-08] MEDS ORDERED: SODIUM CHLORIDE 0.9% FLUSH 5 ML FLUSH IVF PRN (08:00)
--- NOTE | 2016-04-08 08:39 | PD.CONS ---
(Db Lerma MD) HPI Consult Requested By Primary Care Physician Unknown (Db Lerma MD) Service NRS Reason for Consult ICH History of Present Illness Ms. Henry is a 81 year old female who presented to [facility] ED following a fall. History was obtained also with the aid of her . Ms. Henry and her resides in [place], they are on vacation and was walking on the sidewalk by the beach. Ms. Henry has a history of previous CVA as well as gait instability, history of multiple previous falls that caused traumatic head injuries. Her had let go of the patient's hand at one point and she lost her balance and fell. She suffered a right forehead lac that was repaired in the ED as well as a right radial fracture. There were no report of LOC, seizure activities. Her CT Head showed small focal right frontal extra- axial hemorrhage without mass effect or midline shift. She takes aspirin at home. She currently denies headaches, nausea, vomiting, paresthesias. (Elysia Benito) Review of Systems Constitutional: DENIES: Fever Eyes: DENIES: Diplopia Ears, nose, mouth, throat: DENIES: Vertigo Respiratory: DENIES: Apneas, Cough, Hemoptysis Cardiovascular: DENIES: Chest pain, Palpitations Gastrointestinal: DENIES: Abdominal pain Musculoskeletal: DENIES: Neck pain Neurologic: COMPLAINS OF: Abnormal gait, DENIES: Headache, Seizures Psychiatric: DENIES: Hallucinations (Elysia Benito) Past Family Social History Allergies: Coded Allergies: No Known Allergies (Unverified , 04/07/16) Past Medical History Hypertension CVA previous falls with head injury Reported Medications Aspirin 81 (Aspirin) 81 Mg Tabdr 81 Mg PO DAILY Hydrochlorothiazide 25 Mg Tab 25 Mg PO DAILY Lisinopril 10 Mg Tab 10 Mg PO DAILY Active Ordered Medications Current Medications Medications (Trade) Dose Ordered Sig/Mauri Route PRN Reason Start Time Stop Time Status Last Admin Dose Admin Sodium Chloride 1,000 ml @ 84 mls/hr [id number] IV 04/07/16 20:00 04/07/16 22:13 Sodium Chloride (NS 1000 ml Inj) 1,000 ml @ 60 mls/hr [id number] IV 04/07/16 23:30 04/08/16 08:55 Pantoprazole Sodium (Protonix) 40 mg DAILY PO 04/08/16 09:00 Lisinopril (Prinivil) 20 mg DAILY PO 04/08/16 09:00 04/08/16 08:53 Oxycodone/ Acetaminophen (Percocet 5-325 Mg) 1 tab Q4H PRN PO PAIN SCALE 1 TO 5 04/07/16 23:30 Morphine Sulfate (Morphine Inj) 2 mg Q4H PRN IV PAIN SCALE 6 TO 10 04/07/16 23:30 IV Flush (NS Flush) 2 ml UNSCH PRN IVF FLUSH AFTER USING IV ACCESS 04/08/16 08:00 Magnesium Hydroxide (Milk Of [place] Liq) 30 ml Q6H PRN PO CONSTIPATION 04/08/16 08:00 Miscellaneous Information 1 [id number] XX 04/08/16 08:00 Chlorhexidine Gluconate (Chlorhexidine 2% Cloth) 3 pack Taper DAILY@04 TOP 04/09/16 04:00 04/05/17 03:59 Chlorhexidine Gluconate (Chlorhexidine 2% Cloth) 3 pack UNSCH PRN TOP HYGIENIC CARE 04/08/16 08:00 Senna/Docusate Sodium (Gill-Colace) 1 tab BID PO 04/08/16 09:00 04/08/16 08:53 Family History noncontributory Social History They live in [place], no tobacco, etoh, or illicit drug abuse (Elysia Benito) Physical Exam Vital Signs Vital Signs Date Time Temp Pulse Resp B/P Pulse Ox O2 Delivery O2 Flow Rate FiO2 04/08/16 07:11 80 17 151/68 96 Room Air 04/08/16 04:00 74 16 153/94 95 Room Air 04/08/16 02:00 82 16 142/76 93 Room Air 04/07/16 23:00 82 16 162/78 97 Room Air 04/07/16 21:00 76 20 178/82 97 Room Air 04/07/16 20:00 83 17 188/85 97 Room Air 04/07/16 16:09 98.0 78 14 194/86 97 Room Air Physical Exam Ms. Henry is alert, awake and oriented to time, place and person. Speech is fluent. Follows commands. Right periorbital ecchymoses, she has a right eyebrow laceration Cranial nerve examination demonstrates the pupils to be equal, round, and reactive to light. Extra-ocular movements are intact. Facial motor are normal and symmetrical. Neck is soft and supple. Cervical spine has good range of motion in anterior flexion, extension, lateral bending, and rotation without pain. Muscle strength: gross movement right arm, currently in ortho splint. Moves major muscle groups of left upper extremity and bilateral lower extremities well. Sensory examination is intact to light touch to left upper and bilateral lower extremities. Deep tendon reflexes 1+ left biceps, triceps, and brachioradialis, cannot assess right UE due to ortho injury. In the lower extremities, the patellar and Achilles are 1+, bilaterally. There is a bilateral plantar flexion response. Left Scott's negative. Cerebellar examination is intact Laboratory Laboratory Tests Test 04/07/16 04/07/16 19:55 23:55 White Blood Count 7.3 Red Blood Count 4.58 Hemoglobin 14.0 Bedside Hemoglobin 13.9 Hematocrit 41.1 Bedside Hematocrit 41.0 Mean Corpuscular Volume 89.8 Mean Corpuscular Hemoglobin 30.7 Mean Corpuscular Hemoglobin 34.2 Concent Red Cell Distribution Width 13.6 Platelet Count 202 Mean Platelet Volume 7.6 Neutrophils (%) (Auto) 71.5 Lymphocytes (%) (Auto) 19.2 Monocytes (%) (Auto) 8.0 Eosinophils (%) (Auto) 1.0 Basophils (%) (Auto) 0.3 Neutrophils # (Auto) 5.2 Lymphocytes # (Auto) 1.4 Monocytes # (Auto) 0.6 Eosinophils # (Auto) 0.1 Basophils # (Auto) 0.0 CBC Comment DIFF FINAL Differential Comment Prothrombin Time 10.9 Prothromb Time International 1.0 Ratio Activated Partial 26.9 Thromboplast Time Fibrinogen 314 Bedside Sodium 141 Bedside Potassium 3.6 Bedside Chloride 100 Bedside Blood Urea Nitrogen 21 Bedside Creatinine 0.6 Bedside Glucose 89 Blood Type A POSITIVE Antibody Screen NEGATIVE Blood Bank Comment Urine Color LIGHT-YELLOW Urine Turbidity CLEAR Urine pH 6.0 Urine Specific [place] 1.013 Urine Protein NEG Urine Glucose (UA) NEG Urine Ketones NEG Urine Occult Blood NEG Urine Nitrite NEG Urine Bilirubin NEG Urine Urobilinogen LESS THAN 2.0 Urine Leukocyte Esterase TRACE Urine RBC 1 Urine WBC 1 Urine Squamous Epithelial <1 Cells Microscopic Urinalysis Comment CULT NOT INDICATED (Db Lerma MD) Physical Exam Ms. Henry is alert, awake and oriented to time, place and person. Speech is fluent. Follows commands well. Cranial nerve examination demonstrates the pupils to be equal, round, and reactive to light. Extra-ocular movements are intact. Facial motor are normal and symmetrical. Right periorbital ecchymoses, she has a right superior eyebrow lac that has been repaired. Neck is soft and supple. Cervical spine has good range of motion in anterior flexion, extension, lateral bending, and rotation without pain. Muscle strength: gross movement right arm, currently in ortho splint. Moves major muscle groups of left upper extremity and bilateral lower extremities well. Sensory examination is intact to light touch to left upper and bilateral lower extremities. Deep tendon reflexes 1+ left biceps, triceps, and brachioradialis, cannot assess right UE due to ortho injury. In the lower extremities, the patellar and Achilles are 1+, bilaterally. There is a bilateral plantar flexion response. Left Scott's negative. Cerebellar examination is intact to left [id number] test. (Elysia Benito) Result Diagram: 04/07/161954 Imaging Last Impressions Elbow X-Ray 04/07/161953 Signed Impressions: Service Date/Time: Thursday, April 07, 2016 20:02 - CONCLUSION: Nondisplaced radial head fracture. Jovon Hernandez MD Radius/Ulna X-Ray 04/07/16 0000 Signed Impressions: Service Date/Time: Thursday, April 07, 2016 18:44 - CONCLUSION: Possible nondisplaced fracture at the radial head with a suspected elbow joint effusion. Jovon Hernandez MD Pelvis X-Ray 04/07/16 0000 Signed Impressions: Service Date/Time: Thursday, April 07, 2016 18:51 - CONCLUSION: No acute disease. Jovon Hernandez MD Maxillofacial CT 04/07/16 0000 Signed Impressions: Service Date/Time: Thursday, April 07, 2016 18:57 - CONCLUSION: 1. The bones are intact. 2. Right frontal scalp and periorbital soft tissue swelling. Jovon Hernandez MD Head CT 04/07/16 0000 Signed Impressions: Service Date/Time: Thursday, April 07, 2016 18:57 - CONCLUSION: 1. Small 0.8 cm area of increased density at the right lateral frontal extraaxial space adjacent to the sylvian fissure which could represent a small focal extraaxial hemorrhage without mass effect. 2. Low density seen in the right cerebellar hemisphere which may be from prior infarct. Jovon Hernandez MD Hand X-Ray 04/07/16 0000 Signed Impressions: Service Date/Time: Thursday, April 07, 2016 18:41 - CONCLUSION: 1. Medial soft-tissue swelling. 2. Chronic degenerative change at the first carpometacarpal joint. Jovon Hernandez MD Cervical Spine CT 04/07/16 0000 Signed Impressions: Service Date/Time: Thursday, April 07, 2016 18:57 - CONCLUSION: Degenerative changes throughout the cervical spine as described above. An acute bony abnormality is not seen. Jovon Hernandez MD (Elysia Benito) Attending Statement Neuro. I have reviewed her clinical and radiological findings. neuro checks in a serial fashion. No surgical treatment. Will obtain follow-up CT in the morning Respiratory. pulmonary toilette, nasotracheal suction, and breathing treatments with nebulizers. Possible NPH. Recommend neurology evaluation. Possible further evaluation with lumbar spinal drain PT and OT evaluation Nutrition. NPO Renal. monitor closely urine output, BUN and creatinine Endocrine. Monitor serial Acu checks and SSI as needed in detail ID monitor for signs of infection Protonix for stress ulcer prophylaxis Roddy hose and SCD's for DVT prophylaxis (Db Lerma MD) Db Lerma MD Apr 08, 2016 08:39 Elysia Benito Apr 08, 2016 10:16
[2016-04-08] MEDS: LISINOPRIL 20 MG TAB PO SCH (08:53)
[2016-04-08] MEDS: DOCUSATE SODIUM 50 MG/SENNA 8.6 MG TAB PO SCH ×2 (08:53→21:00)
[2016-04-08] MEDS: PANTOPRAZOLE SOD 40 MG DELAYED RELEASE TAB PO SCH (10:56)
[2016-04-08] MEDS: METOPROLOL SUCCINATE 25 MG EXTENDED RELEASE TAB PO SCH (10:56)
[2016-04-08] MEDS ORDERED: hydrALAZINE HCL 20 MG/ML VIAL IV PUSH PRN (11:00)
--- NOTE | 2016-04-08 12:09 | RADRPT ---
EXAM DATE/TIME: 04/08/2016 11:29 [facility] COMPARISON: No previous studies available for comparison. INDICATIONS : Occlusion. MEDICAL HISTORY : Hypertension. Hypercholesterolemia. Arthritis. Cerebrovascular accident. GERD. SURGICAL HISTORY : Tonsillectomy. Appendectomy. Hysterectomy. ENCOUNTER: Initial ACUITY: 1 day PAIN SCORE: 0/10 LOCATION: Bilateral neck PEAK SYSTOLIC VELOCITIES (cm/sec): ICA/CCA RATIO: Right: 1.1 Left: 1.1 ICA: Right: 93 Left: 102 CCA: Right: 88 Left: 92 ECA: Right: 109 Left: 88 VERTEBRAL: Right: 67 antegrade Left: 67 antegrade Elevated flow velocities and ICA/CCA ratios have been found to correlate with increased degrees of vessel stenosis, calculated as percentage of diameter relative to a normal segment of distal ICA/CCA FINDINGS: RIGHT CAROTID: No significant stenosis is visualized. There is mild plaque in the right carotid bulb and proximal in ternal carotid artery. Hypoechoic plaque is present in the distal common carotid artery. The wavefor ms are within normal limits. LEFT CAROTID: No significant stenosis is visualized. The waveforms are within normal limits. VERTEBRAL ARTERIES: Antegrade flow is seen in both vertebral arteries. MISCELLANEOUS: None. CONCLUSION: Mild plaque with no evidence of stenosis or occlusion. Zach Solomon MD on April 08, 2016 at 12:05 Board Certified Radiologist. This report was verified electronically.
--- NOTE | 2016-04-08 16:01 | EC ---
Study Study Date:04/08/2016 STUDY CONCLUSIONS SUMMARY - Procedure narrative: Transthoracic echocardiography. Image quality was fair. Scanning was performed from the parasternal, apical, and subcostal acoustic windows. - Left ventricle: The cavity size was normal. Wall thickness was normal. Systolic function was vigorous. The estimated ejection fraction was in the range of 65% to 70%. Although no diagnostic regional wall motion abnormality was identified, this possibility cannot be completely excluded on the basis of this study. - Mitral valve: Trace regurgitation. - Tricuspid valve: Trace regurgitation. If LV function is below 40, please consider prescribing an ACEI or ARB or document rationale for non-use. PROCEDURE DATA STUDY STATUS: Elective. Procedure: Transthoracic echocardiography. Image quality was fair. Scanning was performed from the parasternal, apical, and subcostal acoustic windows. Study completion: The patient tolerated the procedure well. Transthoracic echocardiography. M-mode, complete 2D, complete spectral Doppler, and color Doppler. Height: Height: 62in. Weight: Weight: 129.7lb. Body mass index: BMI: 23.8kg/m^2. Body surface area: BSA: 1.59m^2. Patient status: Inpatient. CARDIAC ANATOMY LEFT VENTRICLE: The cavity size was normal. Wall thickness was normal. Systolic function was vigorous. The estimated ejection fraction was in the range of 65% to 70%. Although no diagnostic regional wall motion abnormality was identified, this possibility cannot be completely excluded on the basis of this study. AORTIC VALVE: Trileaflet; normal thickness leaflets. Doppler: Transvalvular velocity was within the normal range. There was no stenosis. No regurgitation. Indexed valve area: 1.5cm^2/m^2 (Vmax). AORTA: Aortic root: The aortic root was normal in size. MITRAL VALVE: Structurally normal valve. Doppler: Transvalvular velocity was within the normal range. There was no evidence for stenosis. Trace regurgitation. LEFT ATRIUM: The atrium was normal in size. RIGHT VENTRICLE: The cavity size was normal. Wall thickness was normal. PULMONIC VALVE: Doppler: Transvalvular velocity was within the normal range. There was no evidence for stenosis. No regurgitation. TRICUSPID VALVE: Structurally normal valve. Doppler: Transvalvular velocity was within the normal range. Trace regurgitation. PULMONARY ARTERY: The main pulmonary artery was normal-sized. Systolic pressure was within the normal range. RIGHT ATRIUM: The atrium was normal in size. PERICARDIUM: There was no pericardial effusion. SYSTEMIC VEINS: Inferior vena cava: The vessel was normal in size. Patient weight: 129.7lb _Ejection fraction:_ 65-75% _Fractional shortening:_ 32% up to 5Kg 5-11.5Kg 11.6-22.9Kg 23-45Kg 45-57Kg Aortic Root 7-13 <17 13-22 17-27 17-27 LA diam 6-13 <23 24-38 33-47 37-40 RVID 10-17 7-15 7-15 7-18 8-17 LVIDd 12-22 <32 24-38 33-47 37-40 LVPW 2-4 3-6 5-7 6-8 7-8 IVS 2-4 3-6 5-7 6-8 7-8 BASIC MEASUREMENTS ADULT NORMAL Left ventricle LV internal dimension, ED, chordal *40.4 mm 43-52 level, PLAX LV internal dimension, ES, chordal 26.9 mm 23-38 level, PLAX Fractional shortening, chordal level, 33 % >29 PLAX LV posterior wall thickness, ED 7.74 mm IVS/LVPW ratio, ED 0.94 <1.3 Ventricular septum Septal thickness, ED 7.3 mm Aortic valve Leaflet separation 17 mm 15-26 BASIC MEASUREMENTS ADULT NORMAL Aortic valve Leaflet separation 17 mm 15-26 Aorta Root diameter, ED 21 mm 20-37 Left atrium Anterior-posterior dimension, ES 29 mm 19-40 Anterior-posterior dimension index, ES 1.82 cm/m^2 <2.2 LA/aortic root ratio 1.38 DOPPLER MEASUREMENTS ADULT NORMAL Main pulmonary artery Pressure, S 28 mm Hg =30 Aortic valve Peak velocity, S 130 cm/s Valve area index, Vmax 1.5 cm^2/m^2 Mitral valve Peak E-wave velocity 66.1 cm/s Peak A-wave velocity 78 cm/s Deceleration time 173 ms 150-230 Peak E/A ratio 0.8 Maximal regurgitant velocity 278 cm/s Tricuspid valve Regurgitant peak velocity 232 cm/s Peak RV-RA gradient, S 22 mm Hg Maximal regurgitant velocity 232 cm/s Systemic veins Estimated CVP 10 mm Hg Right ventricle RV pressure, S *32 mm Hg <30 Pulmonic valve Peak velocity, S 97.7 cm/s LEGEND: Mean values are shown as u=mean value. Asterisk (*) ramos values outside specified normal range. Prepared and signed by Jerry López [id number]
--- NOTE | 2016-04-08 16:57 | RADRPT ---
EXAM DATE/TIME: 04/08/2016 16:33 [facility] COMPARISON: CT BRAIN W/O CONTRAST, April 07, 2016, 18:57. INDICATIONS : Follow up to traumatic intracerebral hemorrhage. RADIATION DOSE: 56.35 CTDIvol (mGy) MEDICAL HISTORY : Cardiovascular disease. Cerebrovascular disease. Hypertension. SURGICAL HISTORY : Appendectomy. Hysterectomy. ENCOUNTER: Subsequent ACUITY: 2 days PAIN SCALE: 5/10 LOCATION: cranial TECHNIQUE: Multiple contiguous axial images were obtained of the head. Using automated exposure control and adj ustment of the mA and/or kV according to patient size, radiation dose was kept as low as reasonably a chievable to obtain optimal diagnostic quality images. FINDINGS: CEREBRUM: The ventricles are normal for age. No evidence of midline shift, mass lesion, or acute infarction. The small subtle focal area of increased density along the right lateral frontal cortex is again sherron tly visualized on image #17 and does not appear significantly changed. No other focal areas of abnorm ality are seen.. POSTERIOR FOSSA: The brainstem remains intact in appearance. Encephalomalacia is again noted involving the right cereb ellar hemisphere. The 4th ventricle is midline. The cerebellopontine angle is unremarkable. EXTRACRANIAL: The visualized portion of the orbits is intact. SKULL: The calvaria is intact. No evidence of skull fracture. CONCLUSION: 1. Subtle small focus of increased density again noted on the right lateral frontal lobe with no ermias a or mass effect.. This remains nonspecific. 2. Encephalomalacia in the right cerebellar hemisphere without change. Zach Solomon MD on April 08, 2016 at 16:51 Board Certified Radiologist. This report was verified electronically.
--- NOTE | 2016-04-08 19:02 | HHI.CCPN ---
Subjective Brief History Ms. Henry is a 81 year old female who presented to [facility] ED following a fall. History was obtained also with the aid of her . Ms. Henry and her resides in [place], they are on vacation and was walking on the sidewalk by the beach. Ms. Henry has a history of previous CVA as well as gait instability, history of multiple previous falls that caused traumatic head injuries. Her had let go of the patient's hand at one point and she lost her balance and fell. She suffered a right forehead lac that was repaired in the ED as well as a right radial fracture. There were no report of LOC, seizure activities. Her CT Head showed small focal right frontal extra- axial hemorrhage without mass effect or midline shift. She takes aspirin at home. She currently denies headaches, nausea, vomiting, paresthesias. 24 Hour Review/Hospital Course Patient has been stable over the last 24 hours She is neurologically fully intact Eldred Coma Scale is 15 No focal deficit Ultrasound of the carotids does not reveal any abnormality suggesting hemodynamically significant carotid stenosis so most likely this will simply a fall Patient is being transferred to the floor today and remains in the ICU is a border because there are no beds available on the floor Objective Vital Signs Date Time Temp Pulse Resp B/P Pulse Ox O2 Delivery O2 Flow Rate FiO2 04/08/16 16:00 71 04/08/16 09:00 98.4 14 170/76 94 04/08/16 09:00 Room Air Result Diagram: 04/07/161954 Imaging Last [address] 04/08/16 0000 Signed Impressions: Service Date/Time: Friday, April 08, 2016 16:33 - CONCLUSION: 1. Subtle small focus of increased density again noted on the right lateral frontal lobe with no edema or mass effect.. This remains nonspecific. 2. Encephalomalacia in the right cerebellar hemisphere without change. Zach Solomon MD Carotid Artery Ultrasound 04/08/16 0000 Signed Impressions: Service Date/Time: Friday, April 08, 2016 11:29 - CONCLUSION: Mild plaque with no evidence of stenosis or occlusion. Zach Solomon MD Elbow X-Ray 04/07/161953 Signed Impressions: Service Date/Time: Thursday, April 07, 2016 20:02 - CONCLUSION: Nondisplaced radial head fracture. Jovon Hernandez MD Exam REFRIGERATION MANAGER Eldred Coma Scale 15 patient is fully neurologically intact Hemodynamic/Cardiac Hemodynamically stable Pulmonary/Respiratory Bilateral breath sounds able to get out of bed Abdomen/GI Nutrition Abdomen soft active bowel sounds patient is on regular diet Assessment and Plan Attestation The exam, history, and the medical decision-making described in the above note were completed with the assistance of the mid-level provider. I reviewed and agree with the findings presented. I attest that I had a [id number] encounter with the patient on the same day, and personally performed and documented my assessment and findings in the medical record. Critical care time 35 minutes. Eric Sage MD Apr 08, 2016 19:02
--- NOTE | 2016-04-08 20:46 | MB ---
cc: RHONDA LOCKHART M.D. DATE OF CONSULTATION: 04/08/2016 REASON FOR CONSULTATION: HISTORY OF PRESENT ILLNESS: The patient is an 81-year-old seen in neurological consultation in regards to falls and possible NPH. The patient has a history of prior stroke. She clearly points to the right cerebellar region and she had multiple falls. She had another fall this time when she was visiting this area with her . She was walking on the beach when her let her hand go because of some crowd and then somehow she fell and hit the right frontal orbital head region. She never lost consciousness. Her is at the bedside and he was right there by the patient. With other falls that she has had, she never lost consciousness with them. She has had CT brain showing the old right cerebellar stroke. I reviewed the CT as well. There was a small area of possible hemorrhage in the right extra-axial sylvian fissure. She has been followed by neurosurgery. MEDICATIONS: She takes a baby aspirin, HCTZ and Lisinopril. NEUROLOGICAL EXAMINATION: Neurologic exam shows an alert and bright woman. Ocular movements are full. Visual kaur full. Pupils equal and reactive. No facial weakness. Right frontal orbital injury but her right palpable fissure is at least half open. She has no facial weakness. Neck is supple. Speech and language normal. Extremities: She has good strength in the upper and lower extremities on the bedside exam. There is questionable brisker reflex on the right arm and leg with plantar response being equivocal. I did not ambulate the patient. ASSESSMENT/PLAN: 1. Recurrent falls. 2. Right frontal orbital injury, questionable very small right sylvian fissure extra-axial hemorrhage. 3. Right cerebellar encephalomalacia compatible with a history of old stroke. Neurologic-boyer, she seems to be doing well. She has been in the past followed by a neurologist in her hometown and I would suggest her to return to that neurological followup. Looking at her CT scan, I doubt she has normal pressure hydrocephalus syndrome. Suspect her falls are all related to the previous cerebellar infarct. There is no suggestion of dementia and no significant incontinence. Thank you for asking us to assist in her care. Rhonda Lockhart MD [facility] /7:17 PM /8:15 PM
--- NOTE | 2016-04-08 22:16 | MB ---
cc: SAMANTA ROSENTHAL DATE OF CONSULTATION 04/08/2016 REASON FOR CONSULTATION Right radial head fracture. CONSULTING PHYSICIAN Dr. Sage. HISTORY OF THE PRESENT ILLNESS Xenia is an 81-year female who is visiting from [place]. She was on vacation here. She was walking on the sidewalk along the beach. She had a fall. She lost her balance and fell. She hit her head. She presented to the emergency room where she was evaluated. She was found to have a nondisplaced right radial head fracture. She has also found to have a small right frontal hemorrhage. She is currently awake, alert in the Intensive Care. Her is at bedside. Elbow pain is worse with movement and it is improved with rest. She is currently comfortable. PAST MEDICAL HISTORY Illnesses: 1. Hypertension. 2. Cerebrovascular accident. MEDICATIONS 1. Aspirin. 2. Hydrochlorothiazide. 3. Lisinopril. ALLERGIES NO KNOWN DRUG ALLERGIES. SOCIAL HISTORY The patient lives with her in [place]. She denies alcohol, tobacco or drug use. FAMILY HISTORY Noncontributory. REVIEW OF SYSTEMS The patient denies current headache, visual changes, neck pain, chest pain, shortness of breath, abdominal pain, nausea, vomiting or recent weight loss. She complains of mild right elbow pain. She has some facial pain. PHYSICAL EXAMINATION GENERAL: The patient is a thin 81-year female who is awake and alert. VITAL SIGNS: Temperature 98.4, pulse 78, respirations 14, blood pressure 170/76, O2 sat 94% on room air. HEAD: The patient has a contusion around the right side of her face and orbit. Pupils are equal. NECK: Soft, nontender. Trachea is midline. ABDOMEN: Soft, nontender, nondistended. EXTREMITIES: Examination of right arm reveals no tenderness around her shoulder, wrist or hand. She has intact sensation in all fingers. She has good cap refill in all fingers. Skin is intact. She is tender to palpation of the lateral aspect of the elbow and radial head. She has mild level pain with any motion. Examination of the left arm reveals no pain with shoulder, elbow or wrist motion. Skin intact. Sensation intact in all fingers. She has good cap refill in her fingers. Examination of bilateral lower extremities reveals no significant pain with hip, knee or ankle motion. Skin is intact in both feet. Dorsalis pedis pulses are palpable. IMAGING X-rays of the right elbow were reviewed. X-rays reveal a minimally displaced right radial head fracture. Articular surface is well-aligned. The elbow joint is concentrically reduced. IMPRESSION 1. Nondisplaced right radial head fracture. 2. History of CVAs. 3. Right lateral frontal lobe bleed. PLAN Treatment options discussed with the patient. At this point I would recommend nonsurgical treatment. The patient is in a long-arm splint. She may remain a long-arm splint for 1-2 weeks. She will need to follow up with an orthopedic surgeon at home. At that point she will need to start working on gentle elbow range of motion. All questions were answered. She may follow up with me as needed. A mid-level provider in my office (nurse practitioner or physician topographical field assistant) may see this patient on follow-up visits and continue to implement the objectives of this plan including: Starting or adjusting medications, injections , cast application, orthotics, brace application, physical therapy, radiological studies (including x-ray, MRI, CT, ultrasound, bone scan), vascular studies, neurologic studies, specialist consultation, and proceeding with surgical management, as appropriate. MD EMEKA Neves/JUSTINO /8:09 PM /10:01 PM [id number]
[2016-04-09] VITALS: PULSE 74
[2016-04-09 02:00] VITALS: PULSE 78
[2016-04-09 04:00] VITALS: PULSE 75
[2016-04-09] MEDS ORDERED: CHLORHEXIDINE GLUCONATE 2 % 1 PACK (2 CLOTHS) TOP SCH (04:00)
[2016-04-09 04:28] LABS: AUTOMATED NEUTROPHIL # 3.3 TH/MM3 (1.8-7.7); BASOPHIL % 0.5 % (0.0-2.0); EOSINOPHIL # 0.1 TH/MM3 (0-0.4); EOSINOPHIL % 2.4 % (0.0-4.0); HEMATOCRIT 37.3 % (35.0-46.0); HEMO FLAGS DIFF FINAL; LYMPH % 28.4 % (9.0-44.0); LYMPHOCYTE # 1.6 TH/MM3 (1.0-4.8); MEAN CELL VOLUME 88.2 FL (80.0-100.0); MEAN CORPUSCULAR HEMOGLOBIN 30.2 PG (27.0-34.0); MEAN CORPUSCULAR HGB CONC 34.3 % (32.0-36.0); MONO % 9.9 % (0.0-8.0); NEUT % 58.8 % (16.0-70.0); PLATELET COUNT 173 TH/MM3 (150-450); RED BLOOD COUNT 4.23 MIL/MM3 (4.00-5.30); RED CELL DISTRIBUTION WIDTH 13.3 % (11.6-17.2); WHITE BLOOD COUNT 5.7 TH/MM3 (4.0-11.0)
[2016-04-09 04:37] LABS: BICARBONATE 24.5 MEQ/L (21.0-32.0); POTASSIUM 4.5 MEQ/L (3.5-5.1)
[2016-04-09 06:00] VITALS: PULSE 74
--- NOTE | 2016-04-09 06:03 | RADRPT ---
EXAM DATE/TIME: 04/09/2016 04:45 [facility] COMPARISON: No previous studies available for comparison. INDICATIONS : Patient fell. MEDICAL HISTORY : None. SURGICAL HISTORY : None. ENCOUNTER: Subsequent ACUITY: 2 days PAIN SCORE: 0/10 LOCATION: Bilateral chest FINDINGS: The cardiac silhouette is enlarged in transverse diameter. There is prominence of the aortic knob is with calcification characteristic of atherosclerotic vascular disease. There is prominence of the layne tral pulmonary vasculature with indistinct vascular margins compatible with vascular congestion but n o evidence of overt failure. There is no evidence of pneumothorax. CONCLUSION: 1. Cardiomegaly and findings of vascular congestion without overt failure. Xavier Suarez MD on April 09, 2016 at 6:00 Board Certified Radiologist. This report was verified electronically.
[2016-04-09] MEDS: DOCUSATE SODIUM 50 MG/SENNA 8.6 MG TAB PO SCH (07:42)
[2016-04-09] MEDS: METOPROLOL SUCCINATE 25 MG EXTENDED RELEASE TAB PO SCH ×2 (07:42→09:00)
[2016-04-09] MEDS: PANTOPRAZOLE SOD 40 MG DELAYED RELEASE TAB PO SCH (07:42)
[2016-04-09] MEDS: LISINOPRIL 20 MG TAB PO SCH (07:42)
[2016-04-09] MEDS: SODIUM CHLOR 0.9% 1000 ML INJ 1,000 ML IV SCH (07:42)
[2016-04-09 08:00] VITALS: BP 155/65; PULSE 64; PULSE 65; RESP 18; TEMP 98; O2SAT 94
[2016-04-09] MEDS ORDERED: HYDROCHLOROTHIAZIDE 25 MG TAB PO SCH (09:00)
--- NOTE | 2016-04-09 09:10 | HHI.NSPN ---
(Elysia Benito) Note Status Status: Progress Note (Elysia Benito) Status: Progress Note (Db Lerma MD) Interval History Interval History Ms. Henry is a 81 year old female who presented to [facility] ED following a fall. History was obtained also with the aid of her . Ms. Henry and her resides in [place], they are on vacation and was walking on the sidewalk by the beach. Ms. Henry has a history of previous CVA as well as gait instability, history of multiple previous falls that caused traumatic head injuries. Her had let go of the patient's hand at one point and she lost her balance and fell. She suffered a right forehead lac that was repaired in the ED as well as a right radial fracture. There were no report of LOC, seizure activities. Her CT Head showed small focal right frontal extra- axial hemorrhage without mass effect or midline shift. She takes aspirin at home. She currently denies headaches, nausea, vomiting, paresthesias 04/09: f/u CT Head stable hemorrhage, mild head pain from trauma, denies nausea, vomiting, seizures. no neuro changes overnight (Elysia Benito) Labs, Micro, & Vital Signs Results Date Time Temp Pulse Resp B/P Pulse Ox O2 Delivery O2 Flow Rate FiO2 04/09/16 08:00 98.0 64 18 155/65 94 04/09/16 08:00 65 04/09/16 07:00 Room Air 04/09/16 06:00 74 04/09/16 04:00 75 04/09/16 02:00 78 04/09/16 00:00 74 04/08/16 22:00 75 04/08/16 20:00 76 04/08/16 19:15 98.4 76 15 143/67 95 04/08/16 19:00 Room Air 04/08/16 18:00 75 04/08/16 16:00 71 04/08/16 14:00 78 04/08/16 12:00 72 04/09/16 07:00 Intake Total 1380 ml Output Total 200 ml Balance 1180 ml Constitutional Vital Signs Date Time Temp Pulse Resp B/P Pulse Ox O2 Delivery O2 Flow Rate FiO2 04/09/16 08:00 98.0 64 18 155/65 94 04/09/16 08:00 65 04/09/16 07:00 Room Air 04/09/16 06:00 74 04/09/16 04:00 75 04/09/16 02:00 78 04/09/16 00:00 74 04/08/16 22:00 75 04/08/16 20:00 76 04/08/16 19:15 98.4 76 15 143/67 95 04/08/16 19:00 Room Air 04/08/16 18:00 75 04/08/16 16:00 71 04/08/16 14:00 78 04/08/16 12:00 72 04/09/16 07:00 Intake Total 1380 ml Output Total 200 ml Balance 1180 ml (Elysia Benito) Review of Systems/Exam Exam Ms. Henry is alert and oriented to time, place and person. Speech is fluent. Follows commands. Right periorbital ecchymoses, she has a right eyebrow laceration that has been repaired Cranial nerve examination demonstrates the pupils to be equal, round, and reactive to light. Extra-ocular movements are intact. Facial motor are normal and symmetrical. Neck is soft and supple. Muscle strength: gross movement right arm, currently in ortho splint. Moves major muscle groups of left upper extremity and bilateral lower extremities well. Sensory examination is intact to light touch to left upper and bilateral lower extremities. Deep tendon reflexes 1+ left biceps, triceps, and brachioradialis, cannot assess right UE due to ortho injury. In the lower extremities, the patellar and Achilles are 1+, bilaterally. There is a bilateral plantar flexion response. Left Scott's negative. (Elysia Benito) Medications Current Medications Current Medications Medications (Trade) Dose Ordered Sig/Mauri Route PRN Reason Start Time Stop Time Status Last Admin Dose Admin Sodium Chloride (NS 1000 ml Inj) 1,000 ml @ 60 mls/hr [id number] IV 04/07/16 23:30 04/08/16 08:55 Pantoprazole Sodium (Protonix) 40 mg DAILY PO 04/08/16 09:00 04/09/16 07:42 Lisinopril (Prinivil) 20 mg DAILY PO 04/08/16 09:00 04/09/16 07:42 Oxycodone/ Acetaminophen (Percocet 5-325 Mg) 1 tab Q4H PRN PO PAIN SCALE 1 TO 5 04/07/16 23:30 Morphine Sulfate (Morphine Inj) 2 mg Q4H PRN IV PAIN SCALE 6 TO 10 04/07/16 23:30 IV Flush (NS Flush) 2 ml UNSCH PRN IVF FLUSH AFTER USING IV ACCESS 04/08/16 08:00 Magnesium Hydroxide (Milk Of Magncaprice Liq) 30 ml Q6H PRN PO CONSTIPATION 04/08/16 08:00 Miscellaneous Information 1 [id number] XX 04/08/16 08:00 04/08/16 08:00 Chlorhexidine Gluconate (Chlorhexidine 2% Cloth) 3 pack Taper DAILY@04 TOP 04/09/16 04:00 04/05/17 03:59 Chlorhexidine Gluconate (Chlorhexidine 2% Cloth) 3 pack UNSCH PRN TOP HYGIENIC CARE 04/08/16 08:00 Senna/Docusate Sodium (Gill-Colace) 1 tab BID PO 04/08/16 09:00 04/09/16 07:42 Hydralazine HCl (Apresoline Inj) 20 mg Q4H PRN IV PUSH SBP> OR = 180, DBP> OR = 100 04/08/16 11:00 Metoprolol Succinate (Toprol Xl) 25 mg DAILY PO 04/08/16 11:00 04/09/16 07:42 Hydrochlorothiazide (Hydrodiuril) 25 mg DAILY PO 04/09/16 09:00 (Elysia Benito) Medical Decision Making MDM Remarks 81 y/o female s/p fall with [facility], f/u CT Brain 04/08/16 shows stable extra-axial hemorrhage (Elysia Benito) Plan Plan Remarks f/u CT Brain reviewed nonop mgt of ICH, dw pt be very careful to avoid falls, head injury use assistant hall director/assistive devices when ambulating neuro stable clear to dc from NRS standpoint (Elysia Benito) Attending Statement The exam, history, and the medical decision-making described in the above note were completed with the assistance of the mid-level provider. I reviewed and agree with the findings presented. I attest that I had a [id number] encounter with the patient on the same day, and personally performed and documented my assessment and findings in the medical record. (Db Lerma MD) Elysia Benito Apr 09, 2016 09:09 Db Lerma MD Apr 12, 2016 20:30
[2016-04-09 10:00] VITALS: PULSE 66
[2016-04-09] MEDS ORDERED: CANEMIS18 (10:19)
--- NOTE | 2016-04-09 15:34 | HHI.DS ---
Discharge Summary Admission Date Apr 07, 2016 at 20:46 Discharge Date: Apr 09, 2016 Admitting Diagnosis Fall with ICH, Radial head fx, and complex facial laceration Brief History S/P Trauma: Fall CBC/BMP: 04/09/16 0343 04/09/16 0343 Significant Findings Laboratory Tests Test 04/07/16 04/07/16 04/09/16 19:55 23:55 03:43 Neutrophils (%) (Auto) 71.5 % (16.0-70.0) Urine Leukocyte Esterase TRACE (NEG) Monocytes (%) (Auto) 9.9 % (0.0-8.0) Calcium Level 8.4 MG/DL (8.5-10.1) Imaging Last Impressions Chest X-Ray 04/09/16 0600 Signed Impressions: Service Date/Time: March 04:45 - CONCLUSION: 1. Cardiomegaly and findings of vascular congestion without overt failure. Xavier Suarez MD Head CT 04/08/16 0000 Signed Impressions: Service Date/Time: Friday, April 08, 2016 16:33 - CONCLUSION: 1. Subtle small focus of increased density again noted on the right lateral frontal lobe with no edema or mass effect.. This remains nonspecific. 2. Encephalomalacia in the right cerebellar hemisphere without change. Zach Solomon MD Carotid Artery Ultrasound 04/08/16 0000 Signed Impressions: Service Date/Time: Friday, April 08, 2016 11:29 - CONCLUSION: Mild plaque with no evidence of stenosis or occlusion. Zach Solomon MD Elbow X-Ray 04/07/161953 Signed Impressions: Service Date/Time: Thursday, April 07, 2016 20:02 - CONCLUSION: Nondisplaced radial head fracture. Jovon Hernandez MD Radius/Ulna X-Ray 04/07/16 0000 Signed Impressions: Service Date/Time: Thursday, April 07, 2016 18:44 - CONCLUSION: Possible nondisplaced fracture at the radial head with a suspected elbow joint effusion. Joovn Hernandez MD Pelvis X-Ray 04/07/16 0000 Signed Impressions: Service Date/Time: Thursday, April 07, 2016 18:51 - CONCLUSION: No acute disease. Jovon Hernandez MD Maxillofacial CT 04/07/16 0000 Signed Impressions: Service Date/Time: Thursday, April 07, 2016 18:57 - CONCLUSION: 1. The bones are intact. 2. Right frontal scalp and periorbital soft tissue swelling. Jovon Hernandez MD Hand X-Ray 04/07/16 0000 Signed Impressions: Service Date/Time: Thursday, April 07, 2016 18:41 - CONCLUSION: 1. Medial soft-tissue swelling. 2. Chronic degenerative change at the first carpometacarpal joint. Jovon Hernandez MD Cervical Spine CT 04/07/16 0000 Signed Impressions: Service Date/Time: Thursday, April 07, 2016 18:57 - CONCLUSION: Degenerative changes throughout the cervical spine as described above. An acute bony abnormality is not seen. Jovon Hernandez MD PE at Discharge GENERAL: 81 year old well-nourished, well developed female sitting OOB in chair. SKIN: Warm and dry. HEAD: Normocephalic. Right forehead laceration with sutures in place. EYES: PERRL. Right eye ecchymosis noted. ENT: No nasal bleeding or discharge. Mucous membranes pink and moist. NECK: Trachea midline. No JVD. CARDIOVASCULAR: Regular rate and rhythm. RESPIRATORY: No accessory muscle use. Lungs clear to auscultation. Breath sounds equal bilaterally. GASTROINTESTINAL: Abdomen soft, non-tender, nondistended. + BS. MUSCULOSKELETAL: Extremities without cyanosis, or edema. No obvious deformities. NEUROLOGICAL: Awake and alert. Normal speech. Hospital Course [place]: Patient fell from the standing position and hit her head on the concrete. No LOC. Initial complaints of LEFT hand and RIGHT forearm pain. INJURIES: RIGHT radial head fx (non-op) RIGHT eyebrow lac (sutures) RIGHT frontal hemorrhage PMHx: HTN, CVA, Frequent falls Diet: Regular, tolerating Pulmonary: RA Pain: [place], Morphine. Pain controlled. Activity: OOB, PT, OT evaluated. (NWB RUE). Ambulates with 1 person assist. PT and OT as outpatient. GI: Protonix PO Bowel: Gill-colace, MOM. DVT: SCDs Head CT stable. Ultrasound Carotids- mild plaque, no stenosis. F/U with PCP as outpatient for suture removal. F/U with orthopedics as outpatient. Keep splint clean and dry. NWB RUE. F/U with Neurologist as outpatient. Outpatient PT and OT ordered. Patient is clear from Trauma surgery standpoint to safely discharge home with a cane. Pt Condition on Discharge: Stable Discharge Disposition: Discharge Home Discharge Instructions DIET: Follow Instructions for: As Tolerated, No Restrictions Activities you can perform: See Additionl Instruction Activities to Avoid: Concussion Sports, Contact Sports, Weight Bearing, Strenuous Activity Other Activity Instructions: Nonweight bearing to right upper arm Rebecca Goodson Apr 09, 2016 15:34
== END 2016-04-09 11:53 | disposition home or self-care (01) | DRG 989 ==
LOC: NEPE 16:07 → NEDA 20:46 → NEDH 04-08 03:04 → N03B 04-08 09:18
PROVIDERS: ADMIT Surgery; ATTEND Surgery
PROC: 0JQ10ZZ Repair Face Subcutaneous Tissue and Fascia, Open Approach (ICD-10-PCS; principal; 2016-04-07)
DX: S06.310A Contusion and laceration of right cerebrum without loss of consciousness, initial encounter (principal); G93.89 Other specified disorders of brain; S52.121A Displaced fracture of head of right radius, initial encounter for closed fracture; S01.81XA Laceration without foreign body of other part of head, initial encounter; I10 Essential (primary) hypertension; G89.29 Other chronic pain; Z86.73 Personal history of transient ischemic attack (TIA), and cerebral infarction without residual deficits; Z91.81 History of falling; W18.30XA Fall on same level, unspecified, initial encounter; Y92.480 Sidewalk as the place of occurrence of the external cause; Z79.82 Long term (current) use of aspirin; Z82.49 Family history of ischemic heart disease and other diseases of the circulatory system
CPT/HCPCS: 12014; 70450; 70486; 71010; 72125; 72170; 73080; 73090; 73130; 80048; 81001; 82435; 82565; 82947; 84132; 84295; 84520; 85025; 85384; 85610; 85730; 86850; 86900; 86901; 87641; 93306; 93880; J0690; J7030